=== PATIENT | female | born 1950 | race Native Hawaiian/Other Pacific Islander ===

== ENCOUNTER 2020-12-11 22:00 | Outpatient (CLI) | payer OTHER ==
[2020-12-11 23:05] LABS: PLATELET COUNT 166 K/uL (152-353)
[2020-12-11 23:27] LABS: POTASSIUM 4.4 mmol/L (3.6-5.2)
== END 2020-12-11 22:26 | disposition home or self-care (01) ==
LOC: LAB 22:00
PROVIDERS: ATTEND Nurse Practitioner Family
DX: Z00.00 Encounter for general adult medical examination without abnormal findings (principal); Z79.899 Other long term (current) drug therapy; R53.83 Other fatigue; R53.81 Other malaise; E03.8 Other specified hypothyroidism; G43.909 Migraine, unspecified, not intractable, without status migrainosus; J45.909 Unspecified asthma, uncomplicated; M19.90 Unspecified osteoarthritis, unspecified site
CPT/HCPCS: 80053; 80061; 82306; 82607; 83036; 84439; 84443; 85027